=== PATIENT | female | born 1930 | race Caucasian/White ===

== ENCOUNTER 2019-11-17 11:18 | Inpatient (IN) | payer OTHER, MEDICAID ==
[~2019-11-17] VITALS: Ht 165.1 cm; Wt 66.2 kg
--- NOTE | 2019-11-17 11:20 | NUR ---
pPatient to ER bed 2 to gown for evaluation. Side rails up. Report given to John GREER.
[2019-11-17 11:22] VITALS: BP_SYST 129
--- NOTE | 2019-11-17 11:25 | NUR ---
ER at bedside examining patient.
[2019-11-17] MEDS ORDERED: NS 500 ML IV ONE (11:30)
--- NOTE | 2019-11-17 11:30 | NUR ---
PT CAME TO ER FOR ABD PAIN AND CONSTIPATION X5 DAYS. PT C/O ABD PAIN 04/12, APPEARS TO BE IN MILD DISTRESS, AWAITING MD
--- NOTE | 2019-11-17 12:10 | NUR ---
PT C/O INCREASED ABD PAIN. GIVEN MORPHINE AND ZOFRAN WILL CONTINUE TO MONITOR.
[2019-11-17] MEDS ORDERED: KETOROLAC TROMETHAMINE 30 MG VIAL IVP ONE (12:15)
[2019-11-17 12:29] LABS: BASOPHILS % (AUTO) 0.2 % (0.0-2.0); EOSINOPHILS % (AUTO) 0.1 % (0.0-4.0); HEMATOCRIT 39.2 % (36-48); HEMOGLOBIN 12.7 g/dL (12.0-16.0); LYMPHOCYTES # (AUTO) 0.5 K/uL (1.0-5.5); MEAN CORPUSCULAR HEMOGLOBIN 29 pg (27-31); MEAN CORPUSCULAR HGB CONC 33 % (32-36); MEAN CORPUSCULAR VOLUME 88 fL (79.0-98.0); MONOCYTES # (AUTO) 0.6 K/uL (0.0-1.0); MONOCYTES % (AUTO) 3.6 % (1.7-9.3); NEUTROPHILS # (AUTO) 15.4 K/uL (1.8-7.7); NEUTROPHILS % (AUTO) 93.1 % (40.0-70.0); PLATELET COUNT (AUTO) 237 K/uL (130-430); RED BLOOD CELL COUNT(AUTO) 4.44 MIL/uL (4.2-6.2); RED CELL DISTRIBUTION WIDTH 17.3 % (9.0-15.0); WHITE BLOOD COUNT (AUTO) 16.5 K/uL (4.8-10.8)
[2019-11-17] MEDS ORDERED: ONDANSETRON HCL 4 MG/2 ML VIAL IVP ONE (12:30)
[2019-11-17] MEDS ORDERED: MORPHINE 2 MG/ML INJ. SYRINGE IVP ONE (12:30)
[2019-11-17 12:48] LABS: INR 0.9 (0.8-1.2); PROTHROMBIN TIME 9.2 SECS (9.5-12.5)
[2019-11-17 13:10] LABS: BILIRUBIN,URINE NEGATIVE (NEGATIVE); BLOOD, URINE 2+ (NEGATIVE); CLARITY/URINE CLEAR (CLEAR); COLOR,URINE YELLOW (YELLOW); GLUCOSE,URINE 2+ (NEGATIVE); KETONES,URINE NEGATIVE (NEGATIVE); LEUKOCYTE ESTERASE ,URINE NEGATIVE (NEGATIVE); NITRITE, URINE NEGATIVE (NEGATIVE); PH,URINE 5.5 (5.0-8.0); PROTEIN URINE 3+ (NEGATIVE); UROBILINOGEN,URINE 0.2 (0.2-1.0)
[2019-11-17 13:13] LABS: ANION GAP 9 (5-15); CHLORIDE 95 mmol/L (98-107); CREATININE 3.16 mg/dL (0.55-1.30); GLUCOSE 286 mg/dL (70-99); POTASSIUM 3.5 mmol/L (3.5-5.1); SODIUM SERUM 128 mmol/L (136-145); UREA NITROGEN, BLOOD 67 mg/dL (8-21)
[2019-11-17 13:16] LABS: BACTERIA,URINE MODERATE /HPF (None Seen); FINE GRANULAR CASTS,URINE 0-10 /LPF (None Seen); RBC,URINE 0-3 /HPF (0-3); URINE AMORPHOUS URATE 2+ /HPF (None Seen)
[2019-11-17 13:19] LABS: ALANINE AMINOTRANSFERASE 215 U/L (12-78); ALBUMIN 2.3 g/dL (3.4-4.8); ASPARTATE AMINOTRANSFERASE 233 U/L (10-37); TOTAL BILIRUBIN 0.6 mg/dL (0.0-1.0)
[2019-11-17] MEDS ORDERED: LEVOFLOXACIN 500 MG/D5W 100 ML IV ONE (14:15)
[2019-11-17] MEDS ORDERED: cefTRIAXone 1 GM IVPB PREMIX 50 ML IV ONE (14:15)
--- NOTE | 2019-11-17 15:11 | NUR ---
UNABLE TO COMPLETE PT MED RECONCILIATION AT THIS TIME.
--- NOTE | 2019-11-17 17:00 | NUR ---
Patient will be admitted to care of [facility]. Admitted to TELE unit. Will go to room 134B. Belongings list completed. Complete and up to date summary report printed. SBAR report to be given at bedside with opportunity for questions. REPORT GIVEN TO EDILBERTO GREER. IV PATENT 20G L AC.
--- NOTE | 2019-11-17 17:02 | NUR ---
Admission Note Received patient from ER with diagnosis of Diverticulitis.Oriented to room, call light, pain management and safety.
--- NOTE | 2019-11-17 17:12 | NUR ---
CONSULTATION PAGED/CALLED Reason for Consultation: [] DIVERTICULITIS Person Who was Notified: [] DARIELA Consulting Physician: [] DR Charito GRIGSBY TOOL DESIGN CHECKER FOR DR VELAZCO Records Management Engineer Specialty: [] GI Ordering Physician: [] DR HANSON
[2019-11-17 17:14] VITALS: BP_SYST 158
--- NOTE | 2019-11-17 17:15 | NUR ---
CONSULTATION PAGED/CALLED Reason for Consultation: [] SEPSIS Person Who was Notified: [] DARIELA Consulting Physician: [] DR CHEN Employment Supervisor Specialty: [] ID Ordering Physician: [] DR HANSON
[2019-11-17] MEDS: NACL 0.9% 1,000 ML IV SCH (18:34)
--- NOTE | 2019-11-17 19:10 | NUR ---
CLOSING NOTE Pt resting quietly in bed with no s/s resp distress, no c/o pain or discomfort. IVF now infusing well to LAC at ordered rate with no s/s infiltration to site. Side rails up x3, bed alarm on, room close to nursing station for safety. Call light within reach.
--- NOTE | 2019-11-17 19:30 | NUR ---
Received patient bedside, a/a/o x 4, able to make needs known to staff. Resp even and unlabored with 0 SOB noted. Pt admitted for possible cholecystitis or diverticulitis, pending results. Pt is on clear liquid diet. Awaiting med rec from . Pt comes from snf. MRSA screening is indicated. LAC #20 is patent. Pt to start NS at 75 ml/hr. Pt is stable at this time with no c/o pain or other distress. All safety precautions are in place. Pt is A-fib on the monitor, awaiting orders for VTE prophylactic. Cont. to monitor, call light in easy reach.
[2019-11-17 20:00] VITALS: BP_SYST 123
[2019-11-17 20:30] VITALS: BP_SYST 123
[2019-11-17] MEDS ORDERED: ZOLPIDEM TARTRATE 5 MG TABLET PO PRN (20:45)
--- NOTE | 2019-11-18 | NUR ---
Pt is sleeping at this time. Pt requested sleeping aid from doctor. Per CN, Dr. Lazcano is here. Asked MD for new order for sleeping aid. Per Dr. Lazcano, ok to order Ambien 10 mg q HS PRN. Gave to patient for sleeping. No s/sx of acute distress. Cont. to monitor with hourly rounding.
[2019-11-18] MEDS ORDERED: ASPI-1153 PO (00:44)
[2019-11-18] MEDS ORDERED: MELA3TAB64 PO (00:44)
[2019-11-18] MEDS ORDERED: CAT.1 PO (00:44)
[2019-11-18] MEDS ORDERED: PRAV80TA20 PO (00:44)
[2019-11-18] MEDS ORDERED: FERR-69 PO (00:44)
[2019-11-18] MEDS ORDERED: OMEP20CA11 PO (00:44)
[2019-11-18] MEDS ORDERED: IPRA3AMP9 INH (00:44)
[2019-11-18] MEDS ORDERED: ACET325T53 PO (00:44)
[2019-11-18] MEDS ORDERED: DOCU-144 PO (00:44)
[2019-11-18] MEDS ORDERED: AMLO5TAB4 PO (00:44)
[2019-11-18 01:53] VITALS: BP_SYST 145
--- NOTE | 2019-11-18 04:00 | NUR ---
Pt continues to rest in sleep with no s/sx of acute distress. All needs met.
--- NOTE | 2019-11-18 07:17 | NUR ---
Gave report to am shift RN for continuity of care. Pt has had no change of condition throughout shift but has remained stable throughout. All needs anticipated and met.
[2019-11-18 08:02] VITALS: BP_SYST 157
[2019-11-18] MEDS: NACL 0.9% 1,000 ML IV SCH ×2 (08:12→21:47)
--- NOTE | 2019-11-18 08:15 | NUR ---
PT C/O ABDOMINAL PAIN. PT KEPT NPO OF U/S ABDOMEN.
--- NOTE | 2019-11-18 09:52 | NUR ---
CONSULTATION PAGED/CALLED Reason for Consultation: [] CHOLELITHIASIS Person Who was Notified: [] JILLIAN Consulting Physician: [] DR Charito PARK Lending Activities Supervisor Specialty: [] GEN SURGEON Ordering Physician: [] DR HANSON
[2019-11-18] MEDS ORDERED: ACETAMINOPHEN 325 MG TABLET PO SCH (10:00)
[2019-11-18] MEDS ORDERED: DOCUSATE SODIUM 100 MG CAPSULE PO PRN (10:00)
[2019-11-18] MEDS ORDERED: cloNIDine HCL 0.1 MG TABLET PO SCH (10:00)
[2019-11-18] MEDS ORDERED: PANTOPRAZOLE SODIUM 40 MG TAB PO ONE (11:00)
[2019-11-18 11:39] VITALS: BP_SYST 157
--- NOTE | 2019-11-18 12:31 | NUR ---
Nutrition Update Ricki Scale 15 noted. Pt admitted for diverticulitis Diet: clear liquid BMI: 20.5 kg/m2 RD to follow per nutrition care standards.
[2019-11-18] MEDS ORDERED: MEROPENEM 500 MG in NS 50 ML IV ONE (13:00)
--- NOTE | 2019-11-18 15:56 | NUR ---
CONSULTATION PAGED/CALLED Reason for Consultation: UTI Person Who was Notified: Jesusita Consulting Physician: Bob Salazar Supervisor Weaving Specialty: ID Ordering Physician: Dr Isaura Lazcano
[2019-11-18] MEDS: MORPHINE 2 MG/ML INJ. SYRINGE IVP PRN ×2 (16:32→21:36)
[2019-11-18 18:16] VITALS: BP_SYST 138
--- NOTE | 2019-11-18 18:23 | NUR ---
CLOSING NOTES, PT IN BED, PT ON STABLE CONDITION. EATING CLEAR LIQUID DINNER, NO C/O OF PAIN, PT WAS GIVEN. PT HAD 2X INCONTINENCE. CLEANSED AFTER INCONTINENCE. TURNED AND REPOSITIONED. PT MADE AWARE OF PLAN FOR HIDA SCAN FOR TOMORROW. NEED TO BE NPO AFTER MIDNIGHT. WILL ENDORSE TO NIGHT NURSE.
--- NOTE | 2019-11-18 19:30 | NUR ---
Opening notes Received report. Patient is resting in bed, no signs of distress noted. Breathing even and unlabored. IV patent and intact, infusing fluids. Reminded patient that she will need to have nothing by mouth after midnight. Patient verbalized understanding. Dr. Schmitt called and stated we need to have medical clearance for surgery tomorrow. Raghav inform primary MD. Call light with the patient. Safety precautions in place.
[2019-11-18 20:00] VITALS: BP_SYST 140
--- NOTE | 2019-11-18 20:16 | NUR ---
paged paged for Dr Schmitt, dialed . s/w Clint.
--- NOTE | 2019-11-18 20:49 | NUR ---
Cardio Consultation Paged Reason for consultation: Medical clearance for surgery Was consult called: Yes Person who was notified: Dea Consulting physician: Amaury Szymanski Body Man phone number: Body Man Specialty: Cardiology Ordered By: Dr Lazcano
--- NOTE | 2019-11-18 21:05 | NUR ---
Spoke to Amaury Muñoz Informed MD that Dr. Schmitt needs medical clearance as soon as possible. MD stated he will not be able to see the patient until tomorrow (11/19/2019) after 2 pm. MD inquired about patient status, current labs and history. Per MD, "Cardiac rosales, he is cleared. You need to get renal clearance, too." Will inform primary MD.
--- NOTE | 2019-11-18 21:24 | NUR ---
Nephro Consultation Paged Reason for consultation: Medical clearance for surgery Was consult called: Yes Person who was notified: Dea Consulting physician: Dr Goins Process Development Engineer phone number: [phone] Process Development Engineer specialty: Nephrology Ordered By: Dr Lazcano
[2019-11-18] MEDS: amLODIPine BESYLATE 5 MG TABLET PO SCH (21:34)
[2019-11-18] MEDS: ATORVASTATIN 20 MG TABLET PO SCH (21:34)
[2019-11-18] MEDS: MELATONIN 3 MG TABLET PO SCH (21:35)
[2019-11-18] MEDS: FERROUS SULFATE 325 MG TABLET.DR PO SCH (21:35)
[2019-11-18] MEDS: MEROPENEM 500 MG in NS 50 ML IV SCH (21:38)
--- NOTE | 2019-11-18 22:02 | NUR ---
Follow-up Nephro Consultation Reason for consultation: Medical clearance for surgery Was consult called: Yes Person who was notified: Dea; notified Dea of stat consult (second attempt) Consulting physician: Dr Goins Jewelry Salesperson phone number: [phone] Jewelry Salesperson specialty: Nephrology Ordered By: Dr Lazcano
--- NOTE | 2019-11-18 22:15 | NUR ---
Spoke to Dr. Goins and informed MD about needing medical clearance for surgery. MD inquired about patient's current status, labs, and history. New orders received from MD. Per MD, "Patient is cleared for surgery, call me when labs are up." Informed Dr. Schmitt that patient is medically cleared for surgery. New orders received and inputted.
[2019-11-18 23:49] VITALS: BP_SYST 133
--- NOTE | 2019-11-19 | NUR ---
NPO Patient resting in bed. No signs of distress noted. Breathing even and unlabored. Patient complains of nausea and requesting hot water. Hot water provided with relief. Patient will be NPO for HIDA scan procedure. Patient verbalized understanding.
[2019-11-19] MEDS: D5NS 1,000 ML IV SCH (00:33)
--- NOTE | 2019-11-19 02:00 | NUR ---
Resting Patient asking for water. Informed patient that she cannot have anything by mouth for test in the morning. Patient is forgetful and needs reorienting. Call light with the patient. Safety precautions in place.
--- NOTE | 2019-11-19 04:51 | NUR ---
Sleeping No signs of distress noted. Breathing even and unlabored. IVF infusing well. Call light with the patient. Safety precautions in place.
--- NOTE | 2019-11-19 06:45 | NUR ---
Closing notes Patient to radiology in stable condition for HIDA scan. No signs of distress noted. Breathing even and unlabored. Will endorse care to day shift RN.
[2019-11-19 06:48] LABS: BASOPHILS % (AUTO) 0.3 % (0.0-2.0); EOSINOPHILS # (AUTO) 0.1 K/uL (0.0-0.4); EOSINOPHILS % (AUTO) 1.1 % (0.0-4.0); HEMATOCRIT 35.8 % (36-48); HEMOGLOBIN 11.8 g/dL (12.0-16.0); LYMPHOCYTES # (AUTO) 0.5 K/uL (1.0-5.5); LYMPHOCYTES % (AUTO) 5.3 % (20.5-51.5); MEAN CORPUSCULAR HEMOGLOBIN 29 pg (27-31); MEAN CORPUSCULAR HGB CONC 33 % (32-36); MEAN CORPUSCULAR VOLUME 89 fL (79.0-98.0); MONOCYTES # (AUTO) 0.8 K/uL (0.0-1.0); MONOCYTES % (AUTO) 7.9 % (1.7-9.3); NEUTROPHILS # (AUTO) 8.4 K/uL (1.8-7.7); NEUTROPHILS % (AUTO) 85.4 % (40.0-70.0); PLATELET COUNT (AUTO) 206 K/uL (130-430); RED BLOOD CELL COUNT(AUTO) 4.04 MIL/uL (4.2-6.2); WHITE BLOOD COUNT (AUTO) 9.8 K/uL (4.8-10.8)
[2019-11-19 07:37] LABS: ANION GAP 9 (5-15); CHLORIDE 99 mmol/L (98-107); POTASSIUM 3.8 mmol/L (3.5-5.1); SODIUM SERUM 129 mmol/L (136-145)
[2019-11-19 08:18] LABS: ALANINE AMINOTRANSFERASE 139 U/L (12-78); ALBUMIN 2.1 g/dL (3.4-4.8); ASPARTATE AMINOTRANSFERASE 85 U/L (10-37); CALCIUM 7.9 mg/dL (8.4-11.0); CREATININE 2.75 mg/dL (0.55-1.30); GLUCOSE 415 mg/dL (70-99); PHOSPHORUS 3.2 mg/dL (2.7-4.5); TOTAL BILIRUBIN 0.6 mg/dL (0.0-1.0); UREA NITROGEN, BLOOD 50 mg/dL (8-21)
--- NOTE | 2019-11-19 08:30 | NUR ---
CHEMISTRY BLOOD SUGAR IS CRITICAL AT 415, DR HANSON MADE AWARE AND NEW ORDERS GIVEN.
[2019-11-19] MEDS: ASPIRIN 81 MG TABLET(ECOTRIN) PO SCH (09:00)
[2019-11-19] MEDS: FERROUS SULFATE 325 MG TABLET.DR PO SCH ×2 (09:00→20:48)
[2019-11-19] MEDS: amLODIPine BESYLATE 5 MG TABLET PO SCH ×2 (09:00→20:48)
[2019-11-19] MEDS: PANTOPRAZOLE SODIUM 40 MG TAB PO SCH (09:00)
[2019-11-19 09:22] VITALS: BP_SYST 163
[2019-11-19] MEDS: MORPHINE 2 MG/ML INJ. SYRINGE IVP PRN (09:24)
[2019-11-19] MEDS: INSULIN REGULAR, HUMAN 100 UNITS/ML, 10 ML VIAL (humuLIN R) SUBCUT PRN ×3 (09:31→17:41)
[2019-11-19] MEDS: MEROPENEM 500 MG in NS 50 ML IV SCH ×2 (09:44→20:44)
--- NOTE | 2019-11-19 10:26 | NUR ---
Pt was picking at the PICC line dressing and needed to be changed. PICC line dressing changed with sterile technique. Old dressing removed including biopatch and statlock. No redness or drainage noted to sited. Skin clean, dry, intact cleansed with chlorehexadine swab. New biopatch and statlock placed with tegaderm. Wrapped with jacquelyn for stability. Pt tolerated well.
--- NOTE | 2019-11-19 11:55 | NUR ---
PT TAKEN DOWN TO O.R.
[2019-11-19] MEDS ORDERED: ACETAMINOPHEN 325 MG TABLET PO PRN (12:13)
[2019-11-19] MEDS ORDERED: ACETAMINOPHEN/CODEINE 300 MG-30 MG TABLET PO PRN (12:15)
[2019-11-19] MEDS ORDERED: ONDANSETRON HCL 4 MG/2 ML VIAL IVP PRN ×2 (12:15→13:00)
[2019-11-19 12:27] VITALS: BP_SYST 143
[2019-11-19] MEDS ORDERED: ROCURONIUM BROMIDE 10 MG/ML (ZEMURON) ONE ×2 (12:33→14:42)
[2019-11-19] MEDS ORDERED: IOHEXOL 50 ML IV ONE (12:46)
[2019-11-19] MEDS ORDERED: HYDROmorphone 1 MG INJ. 1 MG/ML AMPUL IVP PRN ×2 (13:00)
--- NOTE | 2019-11-19 14:36 | NUR ---
Dietitian Recommendations *When/if medically feasible, consider a Cardiac, CCHO, Mechanical Soft diet Please see Nutrition Assessment for further details. LT, RD
[2019-11-19] MEDS ORDERED: NS IRRIG SOLN 1000 ML IR ONE (14:42)
[2019-11-19] MEDS ORDERED: DEXAMETHASONE SOD PHOSPHATE 4 MG/ML VIAL ONE (14:42)
[2019-11-19] MEDS ORDERED: LABETALOL 100 MG/ 20ML VIAL ONE (14:42)
[2019-11-19] MEDS ORDERED: MIDAZOLAM HCL 5 MG/ML VIAL (VERSED) IV ONE (14:42)
[2019-11-19] MEDS ORDERED: fentaNYL CITRATE 250 MCG/5 ML AMP ONE (14:42)
[2019-11-19] MEDS ORDERED: ONDANSETRON HCL 4 MG/2 ML VIAL ONE (14:42)
[2019-11-19] MEDS ORDERED: CEFAZOLIN 1 GM IVPB PREMIX 50 ML IV ONE (14:42)
[2019-11-19] MEDS ORDERED: PROPOFOL 200MG/ 20ML VIAL (DIPRIVAN) IV ONE (14:42)
[2019-11-19] MEDS ORDERED: SUCCINYLCHOLINE CHLORIDE 20 MG/ML(QUELICIN) ONE (14:42)
[2019-11-19] MEDS ORDERED: DESFLURANE 15 MIN GAS INH ONE (14:42)
[2019-11-19] MEDS ORDERED: LR 1,000 ML IV.SOLN IV ONE (14:42)
[2019-11-19] MEDS ORDERED: INSULIN REGULAR, HUMAN 100 UNITS/ML, 10 ML VIAL (humuLIN R) ONE (15:20)
[2019-11-19] MEDS ORDERED: NALOXONE HCL 0.4 MG/ML AMP (NARCAN) ONE (15:59)
[2019-11-19 16:20] LABS: HEMATOCRIT 36.3 % (36-48); HEMOGLOBIN 11.6 g/dL (12.0-16.0); MEAN CORPUSCULAR HEMOGLOBIN 29 pg (27-31); MEAN CORPUSCULAR HGB CONC 32 % (32-36); MEAN CORPUSCULAR VOLUME 89 fL (79.0-98.0); PLATELET COUNT (AUTO) 280 K/uL (130-430); RED BLOOD CELL COUNT(AUTO) 4.07 MIL/uL (4.2-6.2); RED CELL DISTRIBUTION WIDTH 16.9 % (9.0-15.0); WHITE BLOOD COUNT (AUTO) 16.4 K/uL (4.8-10.8)
[2019-11-19 16:52] VITALS: BP_SYST 147
--- NOTE | 2019-11-19 17:00 | NUR ---
PT CAME BACK FROM O.R. PT, IS AWAKE, BUT CONFUSED. PT ON BILAT. WRIST RESTRAINT, PT PULLING OUT TUBES. VITALS WNL. PT ON O2 2L PER NC.
[2019-11-19 17:28] LABS: ANION GAP 10 (5-15); CALCIUM 7.8 mg/dL (8.4-11.0); CHLORIDE 103 mmol/L (98-107); CREATININE 2.31 mg/dL (0.55-1.30); GLUCOSE 224 mg/dL (70-99); POTASSIUM 3.6 mmol/L (3.5-5.1); SODIUM SERUM 136 mmol/L (136-145); UREA NITROGEN, BLOOD 43 mg/dL (8-21)
[2019-11-19 17:31] LABS: ALANINE AMINOTRANSFERASE 134 U/L (12-78); ASPARTATE AMINOTRANSFERASE 107 U/L (10-37); TOTAL BILIRUBIN 0.4 mg/dL (0.0-1.0)
[2019-11-19 18:03] LABS: BAND % (MANUAL) 6 % (0-6); BASOPHILS % (MANUAL) 0 % (0-2); EOSINOPHILS % (MANUAL) 0 % (0-7); LYMPHOCYTES % (MANUAL) 6 % (20-46); MONOCYTES % (MANUAL) 3 % (0-11)
--- NOTE | 2019-11-19 18:36 | NUR ---
CLOSING: PT HAD SURGERY TODAY, OPEN TIGIST PER DR PARK. PT CAME BACK TO MST WITH O2 AND RESTRAIN. VITALS WNL. PT STILL DROWSY BUT HIGHLY AROUSABLE WILL ENDORSE TO NIGHT NURSE
[2019-11-19 20:00] VITALS: BP_SYST 149
[2019-11-19] MEDS: MELATONIN 3 MG TABLET PO SCH (20:48)
[2019-11-19] MEDS: ATORVASTATIN 20 MG TABLET PO SCH (20:48)
[2019-11-19] MEDS: MORPHINE 4 MG/ML INJ. SYRINGE IVP PRN (20:54)
--- NOTE | 2019-11-19 22:30 | NUR ---
PATIENT IN BED. NO ACUTE DISTRESS NOTED. tURNED REPOSITION Q2. WILL CONTINUE TO MONITOR.
--- NOTE | 2019-11-19 23:54 | NUR ---
Call placed to patient's daughter, left message via voice mail to make daughter aware of patient's bilateral wrist restraint order.
[2019-11-20] MEDS: D5NS 1,000 ML IV SCH ×3 (00:10→16:00)
[2019-11-20] MEDS: MORPHINE 4 MG/ML INJ. SYRINGE IVP PRN (00:16)
--- NOTE | 2019-11-20 03:29 | NUR ---
THIS NURSE SPOKE WITH PATIENT'S FAMILY. MADE FAMILY AWARE OF THE SOFT WRIST RESTRAINTS THAT ARE IN PLACE FOR SAFETY. SPOKE WITH CARMELINA ALONSO DAUGHTER.
[2019-11-20] MEDS: MORPHINE 2 MG/ML INJ. SYRINGE IVP PRN ×2 (05:41→21:49)
[2019-11-20 07:41] LABS: BASOPHILS % (AUTO) 0.3 % (0.0-2.0); HEMATOCRIT 31.1 % (36-48); HEMOGLOBIN 10.1 g/dL (12.0-16.0); LYMPHOCYTES # (AUTO) 0.3 K/uL (1.0-5.5); LYMPHOCYTES % (AUTO) 2.2 % (20.5-51.5); MEAN CORPUSCULAR HEMOGLOBIN 29 pg (27-31); MEAN CORPUSCULAR HGB CONC 32 % (32-36); MEAN CORPUSCULAR VOLUME 89 fL (79.0-98.0); MONOCYTES # (AUTO) 0.6 K/uL (0.0-1.0); MONOCYTES % (AUTO) 4.4 % (1.7-9.3); NEUTROPHILS # (AUTO) 12.8 K/uL (1.8-7.7); NEUTROPHILS % (AUTO) 93.1 % (40.0-70.0); PLATELET COUNT (AUTO) 242 K/uL (130-430); RED BLOOD CELL COUNT(AUTO) 3.51 MIL/uL (4.2-6.2); RED CELL DISTRIBUTION WIDTH 17.1 % (9.0-15.0); WHITE BLOOD COUNT (AUTO) 13.8 K/uL (4.8-10.8)
[2019-11-20 08:09] LABS: ALANINE AMINOTRANSFERASE 89 U/L (12-78); ALBUMIN 2.1 g/dL (3.4-4.8); ANION GAP 9 (5-15); ASPARTATE AMINOTRANSFERASE 39 U/L (10-37); CALCIUM 8.1 mg/dL (8.4-11.0); CHLORIDE 104 mmol/L (98-107); CREATININE 2.23 mg/dL (0.55-1.30); GLUCOSE 301 mg/dL (70-99); POTASSIUM 3.9 mmol/L (3.5-5.1); SODIUM SERUM 134 mmol/L (136-145); TOTAL BILIRUBIN 0.5 mg/dL (0.0-1.0); UREA NITROGEN, BLOOD 39 mg/dL (8-21)
[2019-11-20] MEDS: MEROPENEM 500 MG in NS 50 ML IV SCH ×2 (11:02→21:25)
[2019-11-20] MEDS: PANTOPRAZOLE SODIUM 40 MG TAB PO SCH (11:02)
[2019-11-20] MEDS: FERROUS SULFATE 325 MG TABLET.DR PO SCH ×2 (11:02→21:25)
[2019-11-20] MEDS: ASPIRIN 81 MG TABLET(ECOTRIN) PO SCH (11:02)
[2019-11-20] MEDS: amLODIPine BESYLATE 5 MG TABLET PO SCH ×2 (11:03→21:29)
[2019-11-20 12:00] VITALS: BP_SYST 135
[2019-11-20] MEDS: INSULIN REGULAR, HUMAN 100 UNITS/ML, 10 ML VIAL (humuLIN R) SUBCUT PRN ×3 (12:42→23:45)
[2019-11-20 16:22] VITALS: BP_SYST 134
--- NOTE | 2019-11-20 19:25 | NUR ---
Opening Note Received report from jc RN, patient is resting in bed, A/Ox2, no signs of acute distress, even and unlabored breathing on room air, IV fluids of D5NS @75ml/hr infusing well to left AC, ANGELINE drain intact and draining well, 20ml of red output emptied. Safety, fall and aspiration precautions in place, bed locked and in lowest position, bed alarm on, two side rails up, bed close to nursing station, call light with patient, will continue to monitor.
[2019-11-20 20:00] VITALS: BP_SYST 148
[2019-11-20] MEDS: ATORVASTATIN 20 MG TABLET PO SCH (21:25)
[2019-11-20] MEDS: MELATONIN 3 MG TABLET PO SCH (21:26)
--- NOTE | 2019-11-20 21:49 | NUR ---
Pain Patient complains of pain 6/10 to her abdomen. PRN morphine 1mg indicated for moderate pain. Educated patient on medication uses and potential side effects, patient able to verbalize understanding, administered medication per MD order, patient tolerated well. All safety precautions in place, call light with patient, will continue to monitor.
--- NOTE | 2019-11-20 22:30 | NUR ---
Incontinence Care Patient voided. Incontinence care rendered by this RN, patient is clean, dry and repositioned. All safety precautions in place, call light with patient will continue to monitor.
--- NOTE | 2019-11-20 23:43 | NUR ---
Blood Sugar Patient's BS is 269. 6 units of regular insulin indicated per insulin sliding scale. Educated patient on medication uses and potential side effects, patient able to verbalize understanding, administered med per MD order, patient tolerated well. All safety precautions in place, call light with patient, will continue to monitor.
[2019-11-21] VITALS: BP_SYST 134
--- NOTE | 2019-11-21 01:25 | NUR ---
RN Rounds Patient is resting in bed, eyes closed, no signs of acute distress, tolerating on room air, IV fluids of infusing well to left AC, ANGELINE drain intact and draining well, changed incision dressing per wound care guidelines, patient tolerated well. Safety, fall and aspiration precautions in place, bed locked and in lowest position, bed alarm on, two side rails up, bed close to nursing station, call light with patient, will continue to monitor.
--- NOTE | 2019-11-21 02:47 | NUR ---
MD Rounds Dr. Martin Funes at bedside, aware of patient's status, no new orders given at this time.
[2019-11-21] MEDS: D5NS 1,000 ML IV SCH ×2 (02:57→15:03)
--- NOTE | 2019-11-21 04:25 | NUR ---
RN Rounds Patient is resting in bed, eyes closed, no signs of acute distress, tolerating on room air, IV fluids of infusing well to left AC, ANGELINE drain intact and draining well. Safety, fall and aspiration precautions in place, bed locked and in lowest position, bed alarm on, two side rails up, bed close to nursing station, call light with patient, will continue to monitor.
--- NOTE | 2019-11-21 05:20 | NUR ---
Blood Sugar Patient's BS is 186. 2 units of regular insulin indicated per insulin sliding scale. Educated patient on medication uses and potential side effects, patient able to verbalize understanding, administered med per MD order, patient tolerated well. All safety precautions in place, call light with patient, will continue to monitor.
[2019-11-21] MEDS: INSULIN REGULAR, HUMAN 100 UNITS/ML, 10 ML VIAL (humuLIN R) SUBCUT PRN ×4 (05:21→23:30)
[2019-11-21 06:15] LABS: BASOPHILS % (AUTO) 0.2 % (0.0-2.0); EOSINOPHILS # (AUTO) 0.1 K/uL (0.0-0.4); EOSINOPHILS % (AUTO) 0.3 % (0.0-4.0); HEMATOCRIT 26.1 % (36-48); HEMOGLOBIN 8.5 g/dL (12.0-16.0); LYMPHOCYTES # (AUTO) 0.6 K/uL (1.0-5.5); LYMPHOCYTES % (AUTO) 3.8 % (20.5-51.5); MEAN CORPUSCULAR HEMOGLOBIN 29 pg (27-31); MEAN CORPUSCULAR HGB CONC 33 % (32-36); MEAN CORPUSCULAR VOLUME 89 fL (79.0-98.0); MONOCYTES # (AUTO) 0.7 K/uL (0.0-1.0); MONOCYTES % (AUTO) 4.3 % (1.7-9.3); NEUTROPHILS # (AUTO) 15.1 K/uL (1.8-7.7); NEUTROPHILS % (AUTO) 91.4 % (40.0-70.0); PLATELET COUNT (AUTO) 239 K/uL (130-430); RED BLOOD CELL COUNT(AUTO) 2.94 MIL/uL (4.2-6.2); RED CELL DISTRIBUTION WIDTH 17.5 % (9.0-15.0); WHITE BLOOD COUNT (AUTO) 16.6 K/uL (4.8-10.8)
[2019-11-21 06:35] LABS: ALBUMIN 1.7 g/dL (3.4-4.8); ANION GAP 9 (5-15); ASPARTATE AMINOTRANSFERASE 20 U/L (10-37); CALCIUM 7.7 mg/dL (8.4-11.0); CHLORIDE 106 mmol/L (98-107); CREATININE 2.14 mg/dL (0.55-1.30); GLUCOSE 210 mg/dL (70-99); POTASSIUM 3.4 mmol/L (3.5-5.1); SODIUM SERUM 136 mmol/L (136-145); TOTAL BILIRUBIN 0.3 mg/dL (0.0-1.0); UREA NITROGEN, BLOOD 38 mg/dL (8-21)
--- NOTE | 2019-11-21 06:48 | NUR ---
Closing Note Patient is resting in bed, eyes closed, no signs of acute distress, even and unlabored breathing on room air, IV fluids of D5NS @75ml/hr infusing well to left AC, ANGELINE drain intact and draining well, 15ml of dark red output emptied, provided incontinence care, patient is clean, dry and repositioned. Safety, fall and aspiration precautions in place, bed locked and in lowest position, bed alarm on, two side rails up, bed close to nursing station, call light with patient, will endorse care to dayshift RN.
--- NOTE | 2019-11-21 07:01 | NUR ---
MD Rounds Dr. Lazcano at bedside, aware of patient's status.
[2019-11-21 07:11] LABS: ALANINE AMINOTRANSFERASE 44 U/L (12-78)
--- NOTE | 2019-11-21 07:30 | NUR ---
OPENING NOTES: RECEIVED PATIENT FROM TEST HOLE DRILLER NURSE. PATIENT IS ASLEEP LAYING DOWN IN BED. PATIENT IS TOLERATING OXYGEN AT ROOM AIR WITH NO SIGNS OF DISTRESS OR SHORTNESS OF BREATH NOTED. IV SITE IS PATENT WITH NO SIGNS OF INFILTRATION NOTED. PATIENT IN STABLE CONDITION. SAFETY, FALL, AND ASPIRATION PRECAUTIONS ARE IN PLACE. BED LOCKED IN LOWEST POSITION WITH CALL LIGHT IN REACH. WILL CONTINUE TO MONITOR PATIENT FOR ANY CHANGES.
[2019-11-21 08:28] VITALS: BP_SYST 146
[2019-11-21] MEDS: ASPIRIN 81 MG TABLET(ECOTRIN) PO SCH (08:28)
[2019-11-21] MEDS: PANTOPRAZOLE SODIUM 40 MG TAB PO SCH (08:28)
[2019-11-21] MEDS: amLODIPine BESYLATE 5 MG TABLET PO SCH ×2 (08:28→20:31)
[2019-11-21] MEDS: FERROUS SULFATE 325 MG TABLET.DR PO SCH ×2 (08:28→20:27)
[2019-11-21] MEDS: MEROPENEM 500 MG in NS 50 ML IV SCH ×2 (08:28→20:27)
--- NOTE | 2019-11-21 10:10 | NUR ---
RN ROUNDS: PATIENT IS AWAKE AND ALERT x1 LAYING DOWN IN BED. NO SIGNS OF DISTRESS OR SHORTNESS OF BREATH NOTED. PATIENT IN STABLE CONDITION. WILL CONTINUE TO MONITOR PATIENT FOR ANY CHANGES.
[2019-11-21 12:00] VITALS: BP_SYST 132
[2019-11-21 12:07] VITALS: BP_SYST 146
--- NOTE | 2019-11-21 12:28 | NUR ---
RN ROUNDS: PATIENT IS ASLEEP LAYING DOWN IN BED. NO SIGNS OF DISTRESS OR SHORTNESS OF BREATH NOTED. PATIENT IN STABLE CONDITION. WILL CONTINUE TO MONITOR PATIENT FOR ANY CHANGES.
--- NOTE | 2019-11-21 14:30 | NUR ---
RN ROUNDS: PATIENT IS AWAKE AND ALERT x1 LAYING DOWN IN BED. PATIENT IS CRYING IN PAIN. PRN PAIN MEDICATION TO BE GIVEN. IV SITE IS PATENT WITH NO SIGNS OF INFILTRATION NOTED. PATIENT IN STABLE CONDITION. WILL CONTINUE TO MONITOR PATIENT FOR ANY CHANGES.
[2019-11-21] MEDS: MORPHINE 4 MG/ML INJ. SYRINGE IVP PRN (14:50)
[2019-11-21] MEDS ORDERED: POTASSIUM CHLORIDE 20 MEQ/PKT PACKET PO ONE (15:00)
[2019-11-21 16:02] VITALS: BP_SYST 122
--- NOTE | 2019-11-21 16:03 | NUR ---
Discharge Planning: DCP faxed pt referral to [facility] (f [phone] ) DCP to follow up Addendum: 11/21/19 at 1610 by Georgina Myers DP [facility] (f [phone] ) per Fanny patient accepted to room [facility]
--- NOTE | 2019-11-21 16:12 | NUR ---
DC Planning: Barriers: the pt is not cleared by surgeon for discharge D/T ANGELINE drained large serosang fluid, the pt is on NPO for ABD ultrasound per ZOEY Mancuso.
--- NOTE | 2019-11-21 18:49 | NUR ---
CLOSING NOTES: PATIENT IS ASLEEP LAYING DOWN IN BED. PATIENT IS TOLERATING OXYGEN AT ROOM AIR WITH NO SIGNS OF DISTRESS OR SHORTNESS OF BREATH NOTED. IV SITE IS PATENT WITH NO SIGNS OF INFILTRATION NOTED. ANGELINE DRAIN INTACT AND DRAINING. PATIENT IN STABLE CONDITION. SAFETY, FALL, AND ASPIRATION PRECAUTIONS REMAINED IN PLACE THROUGHOUT THE SHIFT. BED LOCKED IN LOWEST POSITION WITH CALL LIGHT IN REACH. WILL ENDORSE PATIENT CARE TO ONCOMING KNIFE GLAZER NURSE.
--- NOTE | 2019-11-21 19:45 | NUR ---
Opening Note Received report from jc RN, patient is resting in bed, A/Ox2, no signs of acute distress, even and unlabored breathing on room air, IV fluids of D5NS @75ml/hr infusing well to left AC, ANGELINE drain intact and draining well, 20ml of dark brown drainage output emptied. Safety, fall and aspiration precautions in place, bed locked and in lowest position, bed alarm on, two side rails up, bed close to nursing station, call light with patient, will continue to monitor.
[2019-11-21 20:00] VITALS: BP_SYST 129
[2019-11-21] MEDS: ATORVASTATIN 20 MG TABLET PO SCH (20:27)
[2019-11-21] MEDS: MELATONIN 3 MG TABLET PO SCH (20:28)
[2019-11-21] MEDS: LINEZOLID 300 ML IV SCH (21:16)
--- NOTE | 2019-11-21 23:28 | NUR ---
Blood Sugar Patient's BS is 249. 4 units of regular insulin indicated per insulin sliding scale. Educated patient on medication uses and potential side effects, patient able to verbalize understanding, administered med per MD order, patient tolerated well. All safety precautions in place, call light with patient, will continue to monitor.
[2019-11-22 01:08] VITALS: BP_SYST 119
--- NOTE | 2019-11-22 01:20 | NUR ---
RN Rounds Patient is resting in bed, eyes closed asleep, no signs of acute distress, tolerating on room air, IV fluids of infusing well, ANGELINE drain intact and draining well. Safety, fall and aspiration precautions in place, bed close to nursing station, call light with patient, will continue to monitor.
[2019-11-22] MEDS: MORPHINE 2 MG/ML INJ. SYRINGE IVP PRN (04:05)
--- NOTE | 2019-11-22 05:02 | NUR ---
Incontinence Care/Wound Care Patient had voided. Incontinence care rendered by this RN and VANCE Jimenez. Patient is clean, dry, and repositioned. Wound care completed to abdominal incision. Patient tolerated well. All safety precautions in place, call light with patient, will continue to monitor.
[2019-11-22] MEDS: D5NS 1,000 ML IV SCH ×2 (05:10→21:45)
[2019-11-22] MEDS: INSULIN REGULAR, HUMAN 100 UNITS/ML, 10 ML VIAL (humuLIN R) SUBCUT PRN ×4 (05:13→23:48)
--- NOTE | 2019-11-22 05:14 | NUR ---
Blood Sugar Patient's BS is 223. 4 units of regular insulin indicated per insulin sliding scale. Educated patient on medication uses and potential side effects, patient able to verbalize understanding, administered med per MD order, patient tolerated well. All safety precautions in place, call light with patient, will continue to monitor.
--- NOTE | 2019-11-22 06:53 | NUR ---
Closing Note Patient is resting in bed, eyes closed, no signs of acute distress, even and unlabored breathing on room air, IV fluids of D5NS @75ml/hr infusing well to left AC, ANGELINE drain intact and draining well, 40ml of dark brown drainage output emptied. Safety, fall and aspiration precautions in place, bed locked and in lowest position, bed alarm on, three side rails up, bed close to nursing station, call light with patient, will endorse care to dayshift RN.
[2019-11-22 07:10] LABS: BASOPHILS % (AUTO) 0.3 % (0.0-2.0); EOSINOPHILS # (AUTO) 0.1 K/uL (0.0-0.4); EOSINOPHILS % (AUTO) 0.8 % (0.0-4.0); HEMATOCRIT 28.5 % (36-48); HEMOGLOBIN 9.3 g/dL (12.0-16.0); LYMPHOCYTES # (AUTO) 0.5 K/uL (1.0-5.5); MEAN CORPUSCULAR HEMOGLOBIN 29 pg (27-31); MEAN CORPUSCULAR HGB CONC 33 % (32-36); MEAN CORPUSCULAR VOLUME 90 fL (79.0-98.0); MONOCYTES # (AUTO) 0.5 K/uL (0.0-1.0); MONOCYTES % (AUTO) 2.8 % (1.7-9.3); NEUTROPHILS # (AUTO) 16.3 K/uL (1.8-7.7); NEUTROPHILS % (AUTO) 93.1 % (40.0-70.0); PLATELET COUNT (AUTO) 249 K/uL (130-430); RED BLOOD CELL COUNT(AUTO) 3.18 MIL/uL (4.2-6.2); RED CELL DISTRIBUTION WIDTH 17.4 % (9.0-15.0); WHITE BLOOD COUNT (AUTO) 17.5 K/uL (4.8-10.8)
--- NOTE | 2019-11-22 07:30 | NUR ---
OPENING NOTES: RECEIVED PATIENT FROM FAST FOOD CREW LEAD NURSE. PATIENT IS ASLEEP LAYING DOWN IN BED. PATIENT IS TOLERATING OXYGEN AT ROOM AIR WITH NO SIGNS OF DISTRESS OR SHORTNESS OF BREATH NOTED. IV SITE IS PATENT WITH NO SIGNS OF INFILTRATION NOTED. PATIENT IN STABLE CONDITION. SAFETY, FALL, AND ASPIRATION PRECAUTIONS ARE IN PLACE. BED LOCKED IN LOWEST POSITION WITH CALL LIGHT IN REACH. WILL CONTINUE TO MONITOR PATIENT FOR ANY CHANGES.
[2019-11-22 07:39] LABS: ANION GAP 10 (5-15); CALCIUM 7.7 mg/dL (8.4-11.0); CHLORIDE 107 mmol/L (98-107); CREATININE 1.94 mg/dL (0.55-1.30); GLUCOSE 241 mg/dL (70-99); POTASSIUM 3.6 mmol/L (3.5-5.1); SODIUM SERUM 138 mmol/L (136-145); UREA NITROGEN, BLOOD 34 mg/dL (8-21)
[2019-11-22 08:01] VITALS: BP_SYST 143
[2019-11-22] MEDS: ASPIRIN 81 MG TABLET(ECOTRIN) PO SCH (08:41)
[2019-11-22] MEDS: MEROPENEM 500 MG in NS 50 ML IV SCH (08:41)
[2019-11-22] MEDS: FERROUS SULFATE 325 MG TABLET.DR PO SCH ×2 (08:42→21:36)
[2019-11-22] MEDS: PANTOPRAZOLE SODIUM 40 MG TAB PO SCH (08:42)
[2019-11-22] MEDS: amLODIPine BESYLATE 5 MG TABLET PO SCH ×2 (08:42→22:02)
[2019-11-22] MEDS ORDERED: METOCLOPRAMIDE HCL 10 MG/2 ML VIAL IVP ONE (09:45)
[2019-11-22] MEDS: LINEZOLID 300 ML IV SCH ×2 (10:00→21:36)
[2019-11-22] MEDS: MORPHINE 4 MG/ML INJ. SYRINGE IVP PRN ×2 (10:01→17:23)
--- NOTE | 2019-11-22 10:30 | NUR ---
Discharge Planning: DCP confirmed bed with [facility] at [facility] (f [phone] ) room 31B, REINALDOP talk to Danielle charge nurse to set up transportation. Charge nurse stated pt was still leaking from peg and doctor has ordered more test, will not discharge today.
--- NOTE | 2019-11-22 12:10 | NUR ---
RN ROUNDS: PATIENT IS AWAKE AND ALERT x2 LAYING DOWN IN BED. NO SIGNS OF DISTRESS OR SHORTNESS OF BREATH NOTED. PATIENT IN STABLE CONDITION. WILL CONTINUE TO MONITOR PATIENT FOR ANY CHANGES.
[2019-11-22] MEDS: PIPERACILLIN/TAZO 2.25G/DEX-IS 50 ML IV SCH ×3 (12:11→23:50)
[2019-11-22 12:47] VITALS: BP_SYST 121
[2019-11-22] MEDS: METOCLOPRAMIDE HCL 10 MG/2 ML VIAL IVP SCH ×2 (13:22→21:37)
[2019-11-22 16:14] VITALS: BP_SYST 124
--- NOTE | 2019-11-22 16:15 | NUR ---
RN ROUNDS: PATIENT IS AWAKE AND ALERT x2 LAYING DOWN IN BED. PATIENT WAS CHANGED AND REPOSITIONED. ORAL CARE WAS PERFORMED. IV SITE IS PATENT WITH NO SIGNS OF INFILTRATION NOTED. PATIENT IN STABLE CONDITION. WILL CONTINUE TO MONITOR PATIENT FOR ANY CHANGES.
--- NOTE | 2019-11-22 18:45 | NUR ---
CLOSING NOTES: PATIENT IS ASLEEP LAYING DOWN IN BED. PATIENT IS TOLERATING OXYGEN AT ROOM AIR WITH NO SIGNS OF DISTRESS OR SHORTNESS OF BREATH NOTED. IV SITE IS PATENT WITH NO SIGNS OF INFILTRATION NOTED. ANGELINE DRAIN INTACT AND DRAINING. PATIENT IN STABLE CONDITION. SAFETY, FALL, AND ASPIRATION PRECAUTIONS REMAINED IN PLACE THROUGHOUT THE SHIFT. BED LOCKED IN LOWEST POSITION WITH CALL LIGHT IN REACH. WILL ENDORSE PATIENT CARE TO ONCOMING GRINDER WATCH PARTS NURSE.
--- NOTE | 2019-11-22 19:40 | NUR ---
ROUNDS PATIENT RESTING COMFORTABLY IN BED, VITALS STABLE, NO PAIN AND DISCOMFORT AT THIS TIME. ASSESSMENT DONE AND DOCUMENTED. SEE FLOWSHEET. NEEDS ATTENDED TO. CALL LIGHT PLACED WITHIN REACH.
[2019-11-22] MEDS: MELATONIN 3 MG TABLET PO SCH (21:00)
[2019-11-22] MEDS: ATORVASTATIN 20 MG TABLET PO SCH (21:36)
[2019-11-22 22:37] LABS: URINE SODIUM, RANDOM 38 mmol/L (40-220)
--- NOTE | 2019-11-23 00:14 | NUR ---
PATIENT RESTING: Patient resting quietly. No acute distress noted. Vital signs within normal range.
[2019-11-23] MEDS: MORPHINE 4 MG/ML INJ. SYRINGE IVP PRN (01:24)
[2019-11-23 02:12] VITALS: BP_SYST 160
--- NOTE | 2019-11-23 04:12 | NUR ---
PATIENT RESTING: Patient resting quietly. No acute distress noted. Vital signs within normal range.
[2019-11-23] MEDS: IPRATROPIUM/ALBUTEROL SULFATE 3 ML AMPUL.NEB (DUONEB) INH PRN ×2 (05:53→22:37)
[2019-11-23] MEDS: INSULIN REGULAR, HUMAN 100 UNITS/ML, 10 ML VIAL (humuLIN R) SUBCUT PRN ×3 (06:12→18:26)
[2019-11-23] MEDS: METOCLOPRAMIDE HCL 10 MG/2 ML VIAL IVP SCH ×2 (06:49→14:32)
[2019-11-23] MEDS: PIPERACILLIN/TAZO 2.25G/DEX-IS 50 ML IV SCH ×3 (06:49→18:23)
[2019-11-23 06:54] LABS: ALANINE AMINOTRANSFERASE 26 U/L (12-78); ALBUMIN 1.9 g/dL (3.4-4.8); ANION GAP 10 (5-15); ASPARTATE AMINOTRANSFERASE 21 U/L (10-37); CALCIUM 8.2 mg/dL (8.4-11.0); CHLORIDE 106 mmol/L (98-107); CREATININE 2.09 mg/dL (0.55-1.30); GLUCOSE 173 mg/dL (70-99); SODIUM SERUM 137 mmol/L (136-145); TOTAL BILIRUBIN 0.6 mg/dL (0.0-1.0); UREA NITROGEN, BLOOD 28 mg/dL (8-21)
[2019-11-23 06:56] LABS: BASOPHILS % (AUTO) 0.1 % (0.0-2.0); EOSINOPHILS # (AUTO) 0.2 K/uL (0.0-0.4); EOSINOPHILS % (AUTO) 0.8 % (0.0-4.0); HEMATOCRIT 28.9 % (36-48); HEMOGLOBIN 9.2 g/dL (12.0-16.0); LYMPHOCYTES # (AUTO) 0.8 K/uL (1.0-5.5); MEAN CORPUSCULAR HEMOGLOBIN 29 pg (27-31); MEAN CORPUSCULAR HGB CONC 32 % (32-36); MEAN CORPUSCULAR VOLUME 91 fL (79.0-98.0); MONOCYTES # (AUTO) 0.6 K/uL (0.0-1.0); MONOCYTES % (AUTO) 3.1 % (1.7-9.3); NEUTROPHILS # (AUTO) 18.3 K/uL (1.8-7.7); PLATELET COUNT (AUTO) 288 K/uL (130-430); RED BLOOD CELL COUNT(AUTO) 3.19 MIL/uL (4.2-6.2); RED CELL DISTRIBUTION WIDTH 16.8 % (9.0-15.0); WHITE BLOOD COUNT (AUTO) 19.8 K/uL (4.8-10.8)
--- NOTE | 2019-11-23 07:32 | NUR ---
OPENING NOTE Patient resting in the bed. No acute distress. Denied of pain. Skin warm and dry to touch, IV intact, no swelling, no drainage, no redness. On D5 NS at 75ml/hr, infusing well. On contact isolatio.
--- NOTE | 2019-11-23 07:33 | NUR ---
CONTINUE OPENING NOTE Patient on contact isolation. Abdomen incision intact with dressing, no bleeding note. ANGELINE drain intact to right abdomen, drain with greenish output. Safety measure maintained. Call light within reached. Bed locked in low position, side rails up, bed alarm on. Will continue to monitor.
[2019-11-23] MEDS ORDERED: BISACODYL 10 MG/SUPPOSITORY RC ONE (10:00)
--- NOTE | 2019-11-23 10:02 | NUR ---
SEEN AND EXAMINED BY VALENTIN BEDOLLA WITH ORDER RECEIVED.
[2019-11-23] MEDS: LINEZOLID 300 ML IV SCH ×2 (10:27→21:46)
[2019-11-23] MEDS: ASPIRIN 81 MG TABLET(ECOTRIN) PO SCH (10:27)
[2019-11-23] MEDS: FERROUS SULFATE 325 MG TABLET.DR PO SCH ×2 (10:27→21:46)
[2019-11-23] MEDS: PANTOPRAZOLE SODIUM 40 MG TAB PO SCH (10:27)
--- NOTE | 2019-11-23 10:27 | NUR ---
AM SCHEDULE MED GIVEN, TOLERATED WELL.
[2019-11-23] MEDS: amLODIPine BESYLATE 5 MG TABLET PO SCH ×2 (10:30→21:48)
[2019-11-23 11:06] LABS: CREATININE, URINE 62.5 mg/dL (Not Estab.)
--- NOTE | 2019-11-23 11:31 | NUR ---
P.T. NOTES AFTER MULTIPLE ATTEMPTS PATIENT REFUSED TO BE SEEN BY P.T., STATES NOT FEELING WELL AND NAUSEAS.
[2019-11-23 12:20] VITALS: BP_SYST 133
--- NOTE | 2019-11-23 12:20 | NUR ---
OI=516 Humulin insulin 4 units given per sliding scale. Patient no acute distress. Safety measure maintained. Call light within reached. Continue to monitor.
[2019-11-23] MEDS: D5NS 1,000 ML IV SCH (14:32)
--- NOTE | 2019-11-23 14:40 | NUR ---
ROUND Patient resting in the bed. No acute distress. IV intact, IVF infusing well. Continue contact isolation. Safety measure maintained. Call light within reached. Bed locked in low position, side rails up, bed alarm on. Continue to monitor.
--- NOTE | 2019-11-23 14:45 | NUR ---
Nutrition F/U RD reviewed pt's current EMR record including diet Hx, physician notes, nursing notes, pertinent labs/meds/procedures, care trends, and care activity. Admission Dx: Diverticulitis PMH: DM, HTN, CHF, CKD, anemia per physician notes. Upon admission, pt was found with acute cholecystitis, cardiomegaly, UTI, and hyponatremia per physician notes. Current Diet Order/Nutrition Support: Pertinent Medical Info: Pt is s/p laparoscopy, laparotomy w/ cholecystectomy Sx 11/19/19 d/t gangrenous cholelithiasis Subjective Info: Pt was seen resting in bed, unable to clearly respond to RD verbal interview questions. Per RN, pt was recently advanced to clear liquid diet, and pt did not have much of an appetite today. RD encouraged pt to drink Ensure Clear ONS that comes standard w/ current diet order. Per EMR, PO intake records are negligible. Bedscale wt taken: 149# -- unsure of reliability. Also, documented wt of 146# noted 11/22/19 -- up 23# from admission wt of 123# -- may be r/t fluid fluctuations associated w/ Hx of CHF/CKD. Skin Integrity Comment: Ricki Score: 14; per nursing notes, surgical incisions noted NEW Estimated Energy Expenditure (kcals/day) 9211-0782 kcal/day (30-35 kcal/kg CBW for surgical healing) NEW Estimated Protein Required (g/day) 67-84 gm/day (1.2-1.5 gm/kg CBW for geriatric maintenance, surgical healing) NEW Estimated Fluid Required (l/day) Per physician d/t CHF/CKD Problem/Etiology/Signs/Symptoms Inadequate oral intake related to estimated nutrition needs for current condition as evidenced by NPO. *ongoing, but slight improvement w/ advancement of diet Expected Outcomes/Goals Monitor provision of nutrition w/ goal of pt meeting at least 75% of estimated nutritional needs, labs trending WNL, normal GI function, and skin integrity/wt maintenance Dietitian Recommendations * Recommend continuing clear liquid diet * Consider advance to soft (low fiber/bland) diet w/ Ensure Enlive TID if/when medically appropriate Follow Up High Risk: F/U in 2-3 days
--- NOTE | 2019-11-23 14:50 | NUR ---
Dietitian Recommendations * Recommend continuing clear liquid diet * Consider advance to soft (low fiber/bland) diet w/ Ensure Enlive TID if/when medically appropriate LP, RD Please refer to Nutrition F/U for details.
--- NOTE | 2019-11-23 16:10 | NUR ---
DC Planning: Per KIA Winn : the pt is not cleared by surgeon for discharge. Per dr. Schmitt's note: ".. patient is status post open cholecystectomy for gangrenous gallbladder. Abdomen is distended. She has no definite obstruction on the x-rays and looks like she has an ileus ..." I spoke with dr. Lazcano in [facility] and received [facility] eval order. The order is to process accordingly.
[2019-11-23 16:20] VITALS: BP_SYST 128
--- NOTE | 2019-11-23 18:55 | NUR ---
CLOSING NOTE Patient resting in the bed. No acute distress. IV intact, no redness, no swelling, no drainage, IVF infusing well. Continue on contact isolation. Abdomen incision intact with dressing, no bleeding note. ANGELINE drain intact to right abdomen, drain with greenish output. All needs met. Safety measure maintained. Call light within reached. Bed locked in low position, side rails up, bed alarm on. Will endorse to night nurse.
[2019-11-23 20:00] VITALS: BP_SYST 145
[2019-11-23] MEDS: MELATONIN 3 MG TABLET PO SCH (21:46)
[2019-11-23] MEDS: ATORVASTATIN 20 MG TABLET PO SCH (21:49)
--- NOTE | 2019-11-23 22:24 | NUR ---
PATIENT TRANSFERRED TO 133 BED A NEARER TO THE NURSING STATION THE PATIENT IS BECOMING AGITATED AND ATTEMPTS TO GET OUT OF BED,MEDICATIONS DUE GIVEN. RESPIRATORY CALLED THE PATIENT SATURATION IS ONLY 90 % ON 2 LITERS AND PATIENT NOTED WHEEZING ON AND OFF AND JAVE SHORTNESS OF BREATH,
[2019-11-24] MEDS: PIPERACILLIN/TAZO 2.25G/DEX-IS 50 ML IV SCH ×5 (00:17→23:21)
[2019-11-24] MEDS: INSULIN REGULAR, HUMAN 100 UNITS/ML, 10 ML VIAL (humuLIN R) SUBCUT PRN ×5 (00:22→23:33)
[2019-11-24 02:16] VITALS: BP_SYST 131
[2019-11-24 05:00] VITALS: BP_SYST 146
--- NOTE | 2019-11-24 05:00 | NUR ---
patient seen placing the iv tubing on her neck and was able to remove the tubing and free her from the tubing vital signs checked and recorded. iv cannula is out,will need to reinsert one. saturation 87 % on 2 liter and is short of breath
[2019-11-24 06:25] LABS: BASOPHILS % (AUTO) 0.1 % (0.0-2.0); EOSINOPHILS # (AUTO) 0.1 K/uL (0.0-0.4); EOSINOPHILS % (AUTO) 0.9 % (0.0-4.0); HEMATOCRIT 26.6 % (36-48); HEMOGLOBIN 8.5 g/dL (12.0-16.0); LYMPHOCYTES # (AUTO) 0.7 K/uL (1.0-5.5); LYMPHOCYTES % (AUTO) 4.8 % (20.5-51.5); MEAN CORPUSCULAR HEMOGLOBIN 29 pg (27-31); MEAN CORPUSCULAR HGB CONC 32 % (32-36); MEAN CORPUSCULAR VOLUME 90 fL (79.0-98.0); MONOCYTES # (AUTO) 0.4 K/uL (0.0-1.0); MONOCYTES % (AUTO) 2.9 % (1.7-9.3); NEUTROPHILS % (AUTO) 91.3 % (40.0-70.0); PLATELET COUNT (AUTO) 270 K/uL (130-430); RED BLOOD CELL COUNT(AUTO) 2.95 MIL/uL (4.2-6.2); WHITE BLOOD COUNT (AUTO) 15.3 K/uL (4.8-10.8)
[2019-11-24 06:34] LABS: ANION GAP 10 (5-15); CALCIUM 7.2 mg/dL (8.4-11.0); CHLORIDE 105 mmol/L (98-107); CREATININE 2.04 mg/dL (0.55-1.30); GLUCOSE 231 mg/dL (70-99); POTASSIUM 3.6 mmol/L (3.5-5.1); SODIUM SERUM 137 mmol/L (136-145); UREA NITROGEN, BLOOD 25 mg/dL (8-21)
--- NOTE | 2019-11-24 06:43 | NUR ---
IV CANNULA INSERTED ASEPTICALLY TO THE RIGHT HAND AND IVF RESUMED G 24, DR HANSON INFORED ABOUT THE PATIENT,S BEHAVIOR AND CONFUSION AND WITH ORDERS FOR MITTENS FOR SAFETY AND PREVENT INJURY AND ORDERED, PSYCE CONSULT DR HENLEY PSYCHIATRIC CONSULT.
--- NOTE | 2019-11-24 07:36 | NUR ---
REPORT GIVEN TO THE DAY SHIFT RN THAT THE PATIENT HAS ORDERS FOR MITTENS BUT WHEN ABOUT THE APPLY PATIENT IS ASLLEP./ WILL NEEDS TO CALL THE FAMILY FOR THE MITTENS TO INFORM AND PATIENT WILL BENEFIT FROM A PHONE EXECUTIVE RELATIONS SPECIALIST, THE PATIENT DO NOT SPEAK LITHUANIAN AND HAS LANGUAGE BARRIER THAT MOGHT CONTRIBUTE TO PATIENT FEELING NOT UNDERSTOOD, EXPRESS THAT SHE WILL FOLLOW UP
[2019-11-24 08:00] VITALS: BP_SYST 126
[2019-11-24] MEDS: D5NS 1,000 ML IV SCH ×2 (08:00→12:28)
--- NOTE | 2019-11-24 08:00 | NUR ---
Initial notes- In bed, awake. speak simple welsh. denies any pain at this time. IVF infusing well. On o2 2l. abdominal dressing is dry and intact. ANGELINE drain is draining greenish/yellow. Pt is on clear liquid diet. Drink some of the tea and ensure at this time. Afebrile. safety precaution observed. bed alarm on. will monitor.
--- NOTE | 2019-11-24 08:10 | NUR ---
Restraints- Pt is calm and not pulling out tubes. mittens not applied at this time. Will continue to monitor.
[2019-11-24] MEDS: LINEZOLID 300 ML IV SCH ×2 (08:40→21:06)
[2019-11-24] MEDS: amLODIPine BESYLATE 5 MG TABLET PO SCH ×2 (08:41→21:05)
[2019-11-24] MEDS: FERROUS SULFATE 325 MG TABLET.DR PO SCH ×2 (08:41→21:05)
[2019-11-24] MEDS: ASPIRIN 81 MG TABLET(ECOTRIN) PO SCH (08:41)
[2019-11-24] MEDS: PANTOPRAZOLE SODIUM 40 MG TAB PO SCH (08:41)
--- NOTE | 2019-11-24 10:14 | NUR ---
Notes- Resting at this time. turn and repositioned. no distress noted.
--- NOTE | 2019-11-24 12:35 | NUR ---
turn and repositioned, ANGELINE emptied with 50cc output. tolerating clear liquid, no vomiting noted. at this time.
[2019-11-24 12:36] VITALS: BP_SYST 142
--- NOTE | 2019-11-24 15:00 | NUR ---
Notes- resting at this, no acute distress noted. pain is controlled. repositioned.
[2019-11-24 16:33] VITALS: BP_SYST 132
--- NOTE | 2019-11-24 16:33 | NUR ---
Locks Tender: met with pt. to conduct a DCPA. WEBSPHERE COMMERCE CONSULTANT introduced self to pt. but learned pt. was not understanding Andorran. Rn passed by and WEBSPHERE COMMERCE CONSULTANT inquired about pt. Rn stated pt. possibly speaks Iranian. Yunier Phelan stated pt. may understand some Andorran. WEBSPHERE COMMERCE CONSULTANT will call contacts on the face sheet. WEBSPHERE COMMERCE CONSULTANT called and spoke to Rn who helped WEBSPHERE COMMERCE CONSULTANT complete a DCPA. WEBSPHERE COMMERCE CONSULTANT learned that pts. daughter lives out of state. Pt. Goal is unknow. WEBSPHERE COMMERCE CONSULTANT ann marie get a hold of pts. daughter. Facility where pt. came from stated pt. just came to them on 11/21/19. Prior to that, pt. lived at home alone and her diabetes was poorly managed. Facility stated pt. may be depressed however there is not Dx. and pt. did not see any mental health professional. WEBSPHERE COMMERCE CONSULTANT called and spoke to Yunier Phelan to discuss possible depression and that pt. had been living home alone with poorly monitored Diabetes. Shakira Estevez stated there is a pscy. eval pending. WEBSPHERE COMMERCE CONSULTANT thanked her. WEBSPHERE COMMERCE CONSULTANT will remain available as needed.
--- NOTE | 2019-11-24 18:47 | NUR ---
closing notes- In bed, awake. tolerating clear liquid diet. denies any pain at this time, no vomiting noted. abdominal dressing dry and intact. IVF infusing well. no distress noted. will endorse
[2019-11-24 20:00] VITALS: BP_SYST 147
[2019-11-24] MEDS: ATORVASTATIN 20 MG TABLET PO SCH (21:05)
[2019-11-24] MEDS: MELATONIN 3 MG TABLET PO SCH (21:08)
--- NOTE | 2019-11-24 21:16 | NUR ---
PATIENT ATTEMPTED TO PLACE THE NASAL CANNULA IN HER NECK AND REMOVED, PATIENT EXPRESS DESIRE TO . DR HANSON WILL BE INFORMED
--- NOTE | 2019-11-24 21:23 | NUR ---
DR HANSON IN AND INFORED THAT THE PATIENT ATTEMPTED TO PLACE THE NASAL CANNULA IN HER NECK AGAIN AND EXPRESS THE DESIRE TO . DR HENLEY PSYCHIATRIST CONSULT WAS CALLED AND DAY SHIFT ZOEY HOWARD SHE WAS SEEN BY THE PSYCHIATRIST WITH NO ORDERS WILL FOLLOW UP
--- NOTE | 2019-11-24 22:01 | NUR ---
NURSING BACK TENDER INFORMED ABOUT THE PATIENT EXPRESSING THE DESIRE TO AND THE CHARGE NURSE. DR HANSON ORDERED TO FOLLOW THE CONSULT WITH DR HANSON NO NOTES SEEN FOR THE PHYSICIAN SEEN PATIENT, CHARGE NURSE IS AWARE AND CALLED THE EXCHANGE TO FOLLOW UP WITH THE CONSULT AND IF RE IS A RECORD OF THE CALL. SOFT WRIST RESTRAINTS BILATERAL APPLIED FOR PATIENT SAFETY PATIENT HAS ATTEMPTED TO PLACE THE TUBES IN HER NECK AND EXPRESS DEISRE TO ,
--- NOTE | 2019-11-24 22:05 | NUR ---
CONSULTATION PAGED/CALLED Reason for Consultation: SUICIDAL IDEALIZATIONS Person Who was Notified: MAGNOLIA Consulting Physician: DR. HENLEY (DR. LANGSTON SENIOR PLANNING MANAGER) Soft Top Installer Specialty: PSYCH Ordering Physician: Dr Isaura Lazcano
--- NOTE | 2019-11-24 22:15 | NUR ---
DAUGHTER CALLED AT [facility] [phone] AND MESSAGE LEFT . FRIEND ELENA LEWIS CALLED BUT CANNOT UNDERSTAND GEORGIAN.CHARGE NURSE AIDA BE INFORMED THAT THE FAMILY IS TELUGU SPEAKING, WILL FOLLOW UP WITH THE CALL TO NOTIFY THAT THE PATIENT IS PUT ON FOT WRIST RESTRAINTS FOR SAFTY
--- NOTE | 2019-11-25 03:26 | NUR ---
DAUGHTER CALLED BACK AND INFORMED ABOUT THE MOTHER PLACED ON SOFT WRIST RESTRAINTS SHE ATTEMPTS TO PUT THE IV TUBING OR THE OXYGEN CANNULA TO HER NECK AND EXPRESS SHE WANTS TO , CHARGE NURSE AND THE NURSING ECOSYSTEM ECOLOGY PROFESSOR IS AWARE, DR HENLEY CONSULT EXCHANGE CALLED AND INFORMED ABOUT THE PSYCHIATRIC CONSULT, WILL FOLLOW UP IN AM.
[2019-11-25 04:00] VITALS: BP_SYST 140
--- NOTE | 2019-11-25 04:53 | NUR ---
PATIENT CLEANED AND NOTED THAT THE PATIENT IS DRY AND BNOT VOIDED, BLADDER SCAN DONE 999 ML. CHARGE NURSE WILL CALL DR HANSON FOR ORDERS,
--- NOTE | 2019-11-25 05:20 | NUR ---
MCINTYRE CATHETER DRENCH 16 INSERTED ASEPTICALLY AND OBTAINED 750 ML AT FIRST, FOLWY CATHETER CLAMPED AND WILL OPEN ATER 15 MINUTES, PATIENT TOLERATED THE PROSEDURE
[2019-11-25] MEDS: PIPERACILLIN/TAZO 2.25G/DEX-IS 50 ML IV SCH ×4 (06:18→23:30)
[2019-11-25] MEDS: INSULIN REGULAR, HUMAN 100 UNITS/ML, 10 ML VIAL (humuLIN R) SUBCUT PRN ×3 (06:32→23:44)
--- NOTE | 2019-11-25 07:42 | NUR ---
DAY SHIFT INFORMED THAT THE INCISION SITE IS RED AND SLIGHTLY SWOLLEN, NEEDS TO TAKE A PICTURE AND SHOW THE SURGEON IS DIFFER FROM THE FORMER INCISION SITE,
[2019-11-25 08:00] VITALS: BP_SYST 130
--- NOTE | 2019-11-25 08:00 | NUR ---
Initial notes- In bed, awake. tolerating clear liquid diet, no vomiting noted. gaines catheter draining yellow urine with some sediments. Changed dressing on the abdominal incision. incision is intact, redness and scant drainage noted, no odor. Pain is control at this time, repositioned, encourage deep breathing. bed alarm on. afebrile. will monitor.
[2019-11-25] MEDS: LINEZOLID 300 ML IV SCH ×2 (08:41→21:41)
[2019-11-25] MEDS: FERROUS SULFATE 325 MG TABLET.DR PO SCH ×2 (08:43→21:08)
[2019-11-25] MEDS: ASPIRIN 81 MG TABLET(ECOTRIN) PO SCH (08:43)
[2019-11-25] MEDS: amLODIPine BESYLATE 5 MG TABLET PO SCH ×2 (08:43→21:08)
[2019-11-25] MEDS: PANTOPRAZOLE SODIUM 40 MG TAB PO SCH (08:43)
[2019-11-25] MEDS: D5NS 1,000 ML IV SCH ×2 (08:49→16:00)
--- NOTE | 2019-11-25 11:43 | NUR ---
ABATEMENT WORKER contacted Hiral at [facility] regarding DCP, and transfer. Hiral indicated that she has a room available [address] will be in communication with nurse station for transfer today prior to 5 PM or after 7Pm. Per RN Zhane barrier to DC is order and will contact surgeon, stated she will follow up with .
[2019-11-25 12:00] VITALS: BP_SYST 135
--- NOTE | 2019-11-25 12:08 | NUR ---
Spoke to and cleared patient to go to [facility].
--- NOTE | 2019-11-25 12:14 | NUR ---
Notes- in bed, awake. repositioned.Denies any pain or discomfort. IVF infusing well. pt is been calm the whole morning. IVF infusing well. will continue to monitor.
[2019-11-25 13:08] VITALS: BP_SYST 135
[2019-11-25] MEDS: MORPHINE 4 MG/ML INJ. SYRINGE IVP PRN (14:46)
--- NOTE | 2019-11-25 15:10 | NUR ---
Notes- pt is restless, complain of abdominal pain. medicated with morphine.
--- NOTE | 2019-11-25 15:27 | NUR ---
Spoke to Dr. Lazcano and made aware that patient has a bed at [facility]. informed MD also that the psychiatrist have not seen patient yet. MD okayed patient to be discharged to [facility] with current medications ordered.
[2019-11-25 16:00] VITALS: BP_SYST 118
--- NOTE | 2019-11-25 16:51 | NUR ---
Notes- Per Hiral rojas at [facility]. Pt has a bed in [facility], however there is no enough staff to admit patient tonight. Per Hiral, she will call and update us if there is a change, otherwise pt will be discharge in AM.
--- NOTE | 2019-11-25 18:00 | NUR ---
Seen by at bedside.
--- NOTE | 2019-11-25 18:37 | NUR ---
Notes -Pt just pulled her IV at this time. Refuses to start. will endorse
--- NOTE | 2019-11-25 19:10 | NUR ---
OPENING NOTES/WOUND DRESSING/IV INSERTION Patient awake, sitting in bed watching TV, AOx1. Patient has no signs of respiratory distress noted, denies pain and discomfort at this time. On 2L of oxygen vis nasal cannula, attached and secured. IV insertion on the left forearm done at this time, 2nd attempt. Chowdhury catheter, attached and secured, draining by gravity. Abdominal dressing saturated, dressing change done at this time with help of Charge Nurse Trevor. Vital signs take and recorded. Call light within reach, patient educated to use call light when assistance is needed, patient verbalized understanding. Bed locked and in lowest position. Bed alarm on. Safety precautions in place. Will continue to monitor patient.
[2019-11-25 20:04] VITALS: BP_SYST 135
[2019-11-25] MEDS: ATORVASTATIN 20 MG TABLET PO SCH (21:08)
--- NOTE | 2019-11-25 21:08 | NUR ---
MED PASS Due medication given at this time, patient tolerated well. Patient educated on purpose, side effects and benefits of each medication that is taken, patient unable verbalized understanding, patient confused. Needs attended at this time. Repositioned for comfort. Safety precautions in place. Will continue to monitor patient.
[2019-11-25] MEDS: MELATONIN 3 MG TABLET PO SCH (21:09)
--- NOTE | 2019-11-25 23:30 | NUR ---
RN ROUNDS Patient asleep at this time. No signs of respiratory distress and discomfort noted. Breathing even and unlabored. On 2L of oxygen, attached and secured. IVF infusing well. Safety precautions in place. Will continue to monitor patient.
[2019-11-26 02:17] VITALS: BP_SYST 153
--- NOTE | 2019-11-26 04:31 | NUR ---
RN ROUNDS Patient awake at this time, asked for fluids, given a cup of warm broth. No signs of respiratory distress. Denies pain and discomfort. Breathing even and unlabored. On 2L of oxygen, attached and secured. IVF infusing well. Needs attended. Repositioned for comfort. Safety precautions in place. Will continue to monitor patient.
[2019-11-26] MEDS: PIPERACILLIN/TAZO 2.25G/DEX-IS 50 ML IV SCH (05:14)
[2019-11-26] MEDS: INSULIN REGULAR, HUMAN 100 UNITS/ML, 10 ML VIAL (humuLIN R) SUBCUT PRN (05:19)
[2019-11-26] MEDS: D5NS 1,000 ML IV SCH (05:20)
--- NOTE | 2019-11-26 06:15 | NUR ---
BS 196 Blood sugar checked done at this time. BS 196= 2 units of regular insulin given as coverage. Patient tolerated well. Safety precautions in place. Denies pain and discomfort, will continue to monitor.
--- NOTE | 2019-11-26 06:42 | NUR ---
CLOSING NOTES Patient awake and watching TV. Calm and cooperative. Patient has no signs of respiratory distress noted. Denies pain and discomfort at this time. On 2L of oxygen via nasal cannula, attached and secured. IVF infusing well, patency noted. Chowdhury catheter, attached and secured, draining by gravity. Abdominal dressing clean and dry. Vito Prat, clean and emptied. Call light within reach. Bed locked and in lowest position. Bed alarm on. Safety precautions in place. Repositioned Q2H. All needs met throughout the shift. Will continue to monitor until endorse to oncoming shift nurse for continuity of care.
--- NOTE | 2019-11-26 07:40 | NUR ---
AOx1. No apparent distress noted. On 2L of oxygen vis nasal cannula, attached and secured. IV at left Fa. Chowdhury catheter, draining yellow urine. Call light in place, will continue to monitor.
[2019-11-26 08:00] VITALS: BP_SYST 124
[2019-11-26] MEDS: FERROUS SULFATE 325 MG TABLET.DR PO SCH (09:36)
[2019-11-26] MEDS: PANTOPRAZOLE SODIUM 40 MG TAB PO SCH (09:36)
[2019-11-26] MEDS: ASPIRIN 81 MG TABLET(ECOTRIN) PO SCH (09:36)
[2019-11-26] MEDS: LINEZOLID 300 ML IV SCH (09:37)
[2019-11-26] MEDS: amLODIPine BESYLATE 5 MG TABLET PO SCH (09:37)
[2019-11-26 10:34] VITALS: BP_SYST 124
--- NOTE | 2019-11-26 11:30 | NUR ---
REPORT IS GIVEN TO EMELIA.
--- NOTE | 2019-11-26 12:00 | NUR ---
PT TRANSFERRED Report given to TAYLOR chávez . Transfer packet with Transfer Orders and Medication Reconciliation form given to EMT with report. Exitcare provided. [facility] ID band removed, replaced with ID band with pt's name and . IV catheter kept. All belongings sent with patient. Patient left floor via gurney escorted by EMT in no distress.
== END 2019-11-26 12:00 | DRG 853 ==
LOC: SED 11:18 → STU 15:02
PROVIDERS: ADMIT Internal Medicine; ATTEND Internal Medicine
PROC: 0FJ44ZZ Inspection of Gallbladder, Percutaneous Endoscopic Approach (ICD-10-PCS; 2019-11-19)
PROC: 0DNW4ZZ Release Peritoneum, Percutaneous Endoscopic Approach (ICD-10-PCS; 2019-11-19)
PROC: 0FN44ZZ Release Gallbladder, Percutaneous Endoscopic Approach (ICD-10-PCS; 2019-11-19)
PROC: BF121ZZ Fluoroscopy of Gallbladder using Low Osmolar Contrast (ICD-10-PCS; 2019-11-19)
PROC: 0FT40ZZ Resection of Gallbladder, Open Approach (ICD-10-PCS; principal; 2019-11-19 12:00)
DX: A41.9 Sepsis, unspecified organism (principal); E43 Unspecified severe protein-calorie malnutrition; K65.9 Peritonitis, unspecified; K80.12 Calculus of gallbladder with acute and chronic cholecystitis without obstruction; K82.A2 Perforation of gallbladder in cholecystitis; I13.0 Hypertensive heart and chronic kidney disease with heart failure and stage 1 through stage 4 chronic kidney disease, or unspecified chronic kidney disease; N17.9 Acute kidney failure, unspecified; N39.0 Urinary tract infection, site not specified; E87.1 Hypo-osmolality and hyponatremia; Z16.22 Resistance to vancomycin related antibiotics; K56.7 Ileus, unspecified; E11.22 Type 2 diabetes mellitus with diabetic chronic kidney disease; E66.9 Obesity, unspecified; E78.5 Hyperlipidemia, unspecified; I50.9 Heart failure, unspecified; N18.3 Chronic kidney disease, stage 3 (moderate); K82.A1 Gangrene of gallbladder in cholecystitis; D63.8 Anemia in other chronic diseases classified elsewhere; Z83.3 Family history of diabetes mellitus; Z79.899 Other long term (current) drug therapy; Z68.24 Body mass index [BMI] 24.0-24.9, adult; Z79.82 Long term (current) use of aspirin; Z78.1 Physical restraint status
CPT/HCPCS: 36415; 36600; 71045; 74018; 74021; 74300; 76700-TC; 78226; 80048; 80053; 81000-TC; 82043; 82570; 82570-TC; 82803-TC; 82962; 83605; 83735-TC; 84100-TC; 84302-TC; 84484; 85007; 85025; 85027; 85610-TC; 85730-TC; 87040-TC; 87070; 87070-TC; 87075-TC; 87081; 87086; 87101; 87186-TC; 88304; 93005; 94640; 94760; 96365; 96375; 99285; A9537; C1727; G0378; J0330; J0690; J0696; J1100; J1815; J1885; J1956; J2020; J2185; J2250; J2270; J2310; J2405; J2543; J2704; J2765; J3010; J3490; J7030; J7040; J7042; J7120; Q9967